=== PATIENT | female | born 1980 | race Caucasian/White ===

== ENCOUNTER → 2016-10-21 | Outpatient (CLI) | payer OTHER ==
--- NOTE | 2016-10-21 14:58 | DX ---
Bilateral Feet 2 Views History: Evaluate for rheumatoid arthritis. M0 5.89. Comparison: None available. Findings: Right: No fractures identified. Mild hallux valgus is present with mild degenerative change at the fi rst metatarsophalangeal joint. Bone mineralization is normal. No erosions are identified. There is n o focal soft tissue swelling or soft tissue calcifications. Left: No fractures identified. Mild hallux valgus is present with mild degenerative change at the fir st metatarsophalangeal joint. Bone mineralization is normal. No erosions are identified. There is n o focal soft tissue swelling or soft tissue calcifications. Impression: 1. No radiographic evidence of rheumatoid arthritis. 2. Mild hallux valgus with mild degenerative change at the first metatarsophalangeal joints.
--- NOTE | 2016-10-21 15:04 | DX ---
Bilateral Hands 2 Views History: Assess for rheumatoid arthritis, M05.89. Comparison: None available. Findings: Right: No fractures identified. Alignment is normal. Bone mineralization is normal. No erosions are identified. There is no significant degenerative change. There is no focal soft tissue swelling or so ft tissue calcifications. Left: No fractures identified. Alignment is normal. Bone mineralization is normal. No erosions are i dentified. There is no significant degenerative change. There is no focal soft tissue swelling or sof t tissue calcifications. Impression: No radiographic evidence of rheumatoid arthritis
== END ==
LOC: BMCIMAGING 14:15
PROVIDERS: ATTEND Internal Medicine Rheumatology
DX: Z13.9 Encounter for screening, unspecified (principal)